=== PATIENT | female | born 1975 | race Caucasian/White ===

== ENCOUNTER 2022-09-06 19:34 | Emergency (ER) | payer MEDICAID ==
[~2022-09-06] VITALS: Ht 134.6 cm; Wt 76.2 kg
[2022-09-06 20:10] VITALS: BP 127/79
--- NOTE | 2022-09-06 20:21 | NUR ---
TO LOBBY FOLLOWING TRIAGE
[2022-09-06] MEDS ORDERED: METH4TAB1 PO (21:03)
[2022-09-06] MEDS ORDERED: HYD2.5O TP (21:03)
[2022-09-06] MEDS ORDERED: DIPH25TA53 PO (21:03)
[2022-09-06 21:09] VITALS: BP 127/79
--- NOTE | 2022-09-06 21:09 | NUR ---
Patient discharged with v/s stable. Written and verbal after care instructions given and explained. Patient alert, oriented and verbalized understanding of instructions. Ambulatory with steady gait. All questions addressed prior to discharge. ID band removed. Patient advised to follow up with PMD. Rx of BENADRL, HYDROCORTISONE, MEDROL given. Patient educated on indication of medication including possible reaction and side effects. Opportunity to ask questions provided and answered.
== END 2022-09-06 21:09 | disposition home or self-care (01) ==
LOC: MED 19:34
DX: R21 Rash and other nonspecific skin eruption (principal); Z79.899 Other long term (current) drug therapy
CPT/HCPCS: 99283

== ENCOUNTER 2023-12-15 08:20 | Emergency (ER) | payer MEDICAID, OTHER ==
[~2023-12-15] VITALS: Ht 132.1 cm; Wt 73.3 kg
[~2023-12-15 08:20] MED LIST: DIPH25TA53 PO; HYD2.5O TP; METH4TAB1 PO
[2023-12-15 08:30] VITALS: BP 144/99; PULSE 63; RESP 18; TEMP 97.2; O2SAT 100
[2023-12-15 08:43] VITALS: BP 127/86; PULSE 62; RESP 18; TEMP 97.2; O2SAT 100
[2023-12-15] MEDS: KETOROLAC 60 MG/2 ML VIAL IM ONE (09:18)
[2023-12-15] MEDS ORDERED: IBUP-2213 PO (09:33)
== END 2023-12-15 09:38 | disposition home or self-care (01) ==
LOC: MED 08:20
DX: R07.89 Other chest pain (principal); Z98.890 Other specified postprocedural states; Z79.899 Other long term (current) drug therapy
CPT/HCPCS: 81025; 93005; 96372; 99283; J1885

== ENCOUNTER 2023-12-25 15:53 | Emergency (ER) | payer OTHER ==
[~2023-12-25] VITALS: Ht 121.9 cm; Wt 84.8 kg
[~2023-12-25 15:53] MED LIST changes: +IBUP-2213 PO
[2023-12-25 16:18] VITALS: BP 121/83; PULSE 73; RESP 15; TEMP 98.8; O2SAT 98
[2023-12-25 18:00] LABS: BILIRUBIN,URINE NEGATIVE (NEGATIVE); BLOOD, URINE NEGATIVE (NEGATIVE); COLOR,URINE YELLOW (YELLOW); LEUKOCYTE ESTERASE ,URINE 1+ (NEGATIVE); NITRITE, URINE NEGATIVE (NEGATIVE); PROTEIN,URINE NEGATIVE (NEGATIVE); UGLUCOSE NEGATIVE (NEGATIVE); UROBILINOGEN,URINE 0.2 EU/dL (0.2 - 1)
[2023-12-25 18:13] LABS: APPEARANCE,URINE HAZY (CLEAR)
[2023-12-25 18:21] LABS: RBC,URINE 11-20 (MOD) /HPF (0-5)
[2023-12-25 18:22] LABS: BACTERIA,URINE 3+ /HPF (None Seen); MUCUS,URINE 3+ /LPF (None Seen); SQUAMOUS EPITHELIAL CELL,UR >10 (MANY) /LPF (0-3 (FEW)); WBC,URINE 16-25 (MOD) /HPF (0-5)
[2023-12-25] MEDS ORDERED: CEPH-588 PO (18:40)
== END 2023-12-25 18:43 | disposition home or self-care (01) ==
LOC: MED 15:53
DX: N39.0 Urinary tract infection, site not specified (principal); Z79.899 Other long term (current) drug therapy; Z98.890 Other specified postprocedural states
CPT/HCPCS: 81001; 81025; 87086; 99283